=== PATIENT | female | born 1965 | race Caucasian/White ===

== ENCOUNTER 2016-09-10 07:39 | Day surgery (SDC) | payer BC ==
[~2016-09-10 07:39] MED LIST: Lidocaine 1% 6 ML ONE; Lidocaine 1%/Sod Bicarbonate in NS 8.4% 1 ML Syringe IV PRN; Propofol 200 MG/20 ML SDV ONE; Sodium Chloride 0.9% 10 ML Syringe FLUSH PRN; fentaNYL 100 MCG/2 ML SDV ONE
[2016-09-10] MEDS: Lactated Ringers 1,000 ML IV SCH ×2 (08:10→08:50)
--- NOTE | 2016-09-10 08:50 | PCM.PREANE ---
Preanesthetic Assessment - Physical Assessment NPO Status Date: 09/09/16 NPO Status Time: 21:00 O2 Sat by Pulse Oximetry: 100 Respiratory Rate: 16 Vital Signs: Last Vital Signs Temp 37.7 C 09/10/16 07:45 Pulse 86 09/10/16 07:45 Resp 16 09/10/16 07:45 BP 118/67 09/10/16 07:45 Pulse Ox 100 09/10/16 07:45 Height: 1.65 m Weight: 49.442 kg - Allergies Allergies/Adverse Reactions: Allergies Allergy/AdvReac Type Severity Reaction Status Date / Time oxybutynin Allergy Dizziness Verified 09/09/16 16:03 terbinafine Allergy Itching Verified 09/09/16 16:03 PreAnesthesia Questionnaire - HOME MEDS Home Medications: Home Meds Calcium Carbonate [Calcium] 500 mg PO DAILY 09/09/16 [History] Lansoprazole [Lansoprazole] 30 mg PO DAILY 09/09/16 [History] Multivitamin [Multivitamins] 1 tab PO DAILY 09/09/16 [History] - CURRENT (IN HOUSE) MEDS Current Meds: Current Medications Lactated Ringer's (Ringers, Lactated) 1,000 mls @ 125 mls/hr IV ASDIRECTED CHICO Stop: 09/10/16 23:59 Last Admin: 09/10/16 08:10 Dose: 125 mls/hr Lidocaine/Sodium Bicarbonate (Buffered Lidocaine 1% In Ns 8.4%) 0.25 ml IV ONETIME PRN PRN Reason: Prior to IV Start Stop: 09/10/16 23:59 Last Admin: 09/10/16 08:10 Dose: 0.25 ml Sodium Chloride (Saline Flush) 10 ml FLUSH ASDIRECTED PRN PRN Reason: Keep Vein Open Stop: 09/10/16 23:59 Discontinued Medications Fentanyl (Sublimaze) Confirm Administered Dose 100 mcg .ROUTE .STK-MED ONE Stop: 09/10/16 07:32 Lidocaine HCl (Xylocaine-Mpf 1%) Confirm Administered Dose 6 mls @ as directed .ROUTE .STK-MED ONE Stop: 09/10/16 07:32 Propofol (Diprivan 20 Ml) Confirm Administered Dose 200 mg .ROUTE .STK-MED ONE Stop: 09/10/16 07:32 Preanesthetic Assessment - ANESTHESIA/TRANSFUSION/FAMILY HX Anesthesia/Transfusion History: No Prior Transfusion(s), Prior Anesthesia Type of Anesthesia Reaction: Reports: Unknown Family History of Anesthesia Reaction: No Intubation History: Unknown Type of Transfusion Reactions: Reports: Unknown - REVIEW OF SYSTEMS Constitutional: Reports: no symptoms DOORS PREFITTER: Reports: no symptoms Respiratory: Reports: no symptoms Cardiovascular: Reports: no symptoms GI: Reports: no symptoms (GERD), nausea (hx, not at the present time ) Other: Reports: None - PHYSICAL ASSESSMENT O2 Sat by Pulse Oximetry: 100 RR: 16 Vital Signs: Last Vital Signs Temp 37.7 C 09/10/16 07:45 Pulse 86 09/10/16 07:45 Resp 16 09/10/16 07:45 BP 118/67 09/10/16 07:45 Pulse Ox 100 09/10/16 07:45 Height: 1.65 m Weight: 49.442 kg NPO Status Date: 09/09/16 NPO Status Time: 21:00 ASA Class: 2 Mental Status: Alert & Oriented x3 Airway Class: Mallampati = 1 Dentition: Reports: Normal Dentition Thyro-Mental Finger Breadths: 3 Mouth Opening Finger Breadths: 3 ROM/Head Extension: Full Respiratory Status: lungs clear to auscultation bilaterally Cardiovascular Status: regular rate & rhythm, normal S1, S2, no murmur, blood pressure WNL - ALLERGIES Allergies/Adverse Reactions: Allergies Allergy/AdvReac Type Severity Reaction Status Date / Time oxybutynin Allergy Dizziness Verified 09/09/16 16:03 terbinafine Allergy Itching Verified 09/09/16 16:03 - BLOOD Blood Available: No Product(s) Available: None - ANESTHESIA PLAN Preop Beta Amalia: No Anesthesia Type Planned: MAC - ACKNOWLEDGEMENTS Pt an Appropriate Candidate for the Planned Anesthesia: Yes Alternatives and Risks of Anesthesia Discussed w Pt/Guardian: Yes Pt/Guardian Understands and Agrees with Anesthesia Plan: Yes
--- NOTE | 2016-09-10 09:42 | PCM48HPAN ---
Post Anesthesia Note - EVALUATION WITHIN 48HRS OF ANESTHETIC Vital Signs in Normal Range: Yes Patient Participated in Evaluation: Yes Respiratory Function Stable: Yes Airway Patent: Yes Cardiovascular Function Stable: Yes Hydration Status Stable: Yes Pain Control Satisfactory: Yes Nausea and Vomiting Control Satisfactory: Yes Mental Status Recovered: Yes
--- NOTE | 2016-09-10 09:46 | PCM.OPNOTE ---
[id number] junction biopsies Findings: normal EGD Pre Op Diagnosis: GERD Post-Op Diagnosis: nornal EGD Anesthesia Technique: MAC, Moderate sedation Primary Surgeon: Cristo Carrillo Pathology: GE jucntion biopsies x3 EBL in mLs: 0 Complications: None Condition: Good Free Text/Narrative:: After adequate IV sedation and analgesia was obtained the patient was placed on her left side. Through a bite block a lubricated upper endoscope was inserted into the esophagus and advanced to the stomach without difficulty. Air was given here. The pylorus was entered into the duodenum to the second part. The second, and first portion were endoscopically normal. The antrum and body of the stomach were endoscopically normal as well with no inflammatory changes seen. In the retroflexed view there was no hiatal hernia. The fundus and cardiac , regions were normal. I pulled the scope into the distal esophagus. The GE junction was normal. Two random biopsies were taken given her history for histologic evaluation. The body of the esophagus was endoscopically normal. Traveling Sales Executive photographs were taken for the patient and for the record.
[2016-09-10 10:12] VITALS: BP 116/71
== END 2016-09-10 10:20 | disposition home or self-care (01) ==
LOC: JD.SDS 07:39
PROVIDERS: ATTEND Surgery
PROC: 0DB48ZZ Excision of Esophagogastric Junction, Via Natural or Artificial Opening Endoscopic (ICD-10-PCS; principal; 2016-09-10)
DX: K21.9 Gastro-esophageal reflux disease without esophagitis (principal); M85.80 Other specified disorders of bone density and structure, unspecified site
CPT/HCPCS: 43239; 88305; 93005; J3010; J7120; J2704

== ENCOUNTER 2017-05-27 07:41 | Day surgery (SDC) | payer BC ==
[~2017-05-27 07:41] MED LIST changes: -Lidocaine 1% 6 ML ONE; -fentaNYL 100 MCG/2 ML SDV ONE
[2017-05-27] MEDS: Lactated Ringers 1,000 ML IV SCH ×2 (07:50→10:36)
--- NOTE | 2017-05-27 08:17 | PCM.PREANE ---
Preanesthetic Assessment - Anesthesia/Transfusion/Family Hx Anesthesia History: Prior Anesthesia Reaction ("not sure if it was anesthesia but was unable to lift arms and legs" "highly sensative") Family History of Anesthesia Reaction: No Transfusion History: No Prior Transfusion(s) Type of Transfusion Reactions: Reports: Unknown - Review of Systems General: No Symptoms Pulmonary: No Symptoms Cardiovascular: No Symptoms, Other (LBBB) Gastrointestinal: No Symptoms Neurological: No Symptoms Other: Reports: None - Physical Assessment NPO Status Date: 05/26/17 NPO Status Time: 00:00 Pulse: 92 O2 Sat by Pulse Oximetry: 100 Respiratory Rate: 16 Blood Pressure: 113/64 Temperature: 36.7 C Vital Signs: Last Vital Signs Temp 36.7 C 05/27/17 07:50 Pulse 92 05/27/17 07:50 Resp 16 05/27/17 07:50 BP 113/64 05/27/17 07:50 Pulse Ox 100 05/27/17 07:50 Height: 1.65 m Weight: 49.895 kg ASA Class: 2 Mental Status: Alert & Oriented x3 Airway Class: Mallampati = 1 Dentition: Reports: Normal Dentition Thyro-Mental Finger Breadths: 3 Mouth Opening Finger Breadths: 3 ROM/Head Extension: Full Lungs: Clear to Auscultation, Normal Respiratory Effort Cardiovascular: Regular Rate, Regular Rhythm, No Murmurs - Allergies Allergies/Adverse Reactions: Allergies Allergy/AdvReac Type Severity Reaction Status Date / Time iodine Allergy Cannot Verified 05/26/17 15:34 Remember metoclopramide [From Reglan] Allergy Cannot Verified 05/26/17 15:34 Remember oxybutynin Allergy Dizziness Verified 05/26/17 15:34 terbinafine Allergy Itching Verified 05/26/17 15:34 - Blood Blood Available: No Product(s) Available: None - Anesthesia Plan Pre-Op Medication Ordered: None - Acknowledgements Anesthesia Type Planned: MAC Pt an Appropriate Candidate for the Planned Anesthesia: Yes Alternatives and Risks of Anesthesia Discussed w Pt/Guardian: Yes Pt/Guardian Understands and Agrees with Anesthesia Plan: Yes PreAnesthesia Questionnaire HEENT History: Reports: Other (See Below) Other HEENT History: sinus pain, TMJ, wears contacts Cardiovascular History: Reports: Other (See Below) Other Cardiovascular History: left bundle branch block Respiratory History: Reports: None Gastrointestinal History: Reports: Gastritis, GERD, Other (See Below) Other Gastrointestinal History: abdominal pain, cholecystitis, gastritis SPECIAL CERTIFICATE DICTATOR History: Reports: None Musculoskeletal History: Reports: Back Pain, Chronic, Osteoporosis, Other (See Below) Other Musculoskeletal History: right ankle fracture, left elbow fracture Neurological History: Reports: None Psychiatric History: Reports: None Endocrine/Metabolic History: Reports: Osteopenia Hematologic History: Reports: Anemia Immunologic History: Reports: None Oncologic (Cancer) History: Reports: Breast Dermatologic History: Reports: Other (See Below) Other Dermatologic History: nail disorder, onchomycosis - Past Surgical History Head Surgeries/Procedures: Reports: None Cardiovascular Surgical History: Reports: None Respiratory Surgical History: Reports: None GI Surgical History: Reports: Cholecystectomy Female Surgical History: Reports: Breast Biopsy Endocrine Surgical History: Reports: None Neurological Surgical History: Reports: None Musculoskeletal Surgical History: Reports: Shoulder Surgery Oncologic Surgical History: Reports: None - SUBSTANCE USE Smoking Status *Q: Never Smoker Tobacco Use Within Last Twelve Months: No Second Hand Smoke Exposure: No Days Per Week of Alcohol Use: 0 Number of Drinks Per Day: 0 Total Drinks Per Week: 0 Recreational Drug Use History: No - HOME MEDS Home Medications: Home Meds Nortriptyline [Nortriptyline] 10 mg PO 1200 05/26/17 [History] - CURRENT (IN HOUSE) MEDS Current Meds: Current Medications Lactated Ringer's (Ringers, Lactated) 1,000 mls @ 125 mls/hr IV ASDIRECTED [facility] Lidocaine/Sodium Bicarbonate (Buffered Lidocaine 1% In Ns 8.4%) 0.25 ml IV ONETIME PRN PRN Reason: Prior to IV Start Sodium Chloride (Saline Flush) 10 ml FLUSH ASDIRECTED PRN PRN Reason: Keep Vein Open Discontinued Medications Propofol (Diprivan 20 Ml) Confirm Administered Dose 200 mg .ROUTE .STK-MED ONE Stop: 05/27/17 07:15
[2017-05-27] MEDS ORDERED: Propofol 200 MG/20 ML SDV ONE (09:08)
[2017-05-27] MEDS ORDERED: Lidocaine 1% 2 ML ONE ×2 (09:16)
--- NOTE | 2017-05-27 09:36 | PCM48HPAN ---
Post Anesthesia Note - EVALUATION WITHIN 48HRS OF ANESTHETIC Vital Signs in Normal Range: Yes Patient Participated in Evaluation: Yes Respiratory Function Stable: Yes Airway Patent: Yes Cardiovascular Function Stable: Yes Hydration Status Stable: Yes Pain Control Satisfactory: Yes Nausea and Vomiting Control Satisfactory: Yes Mental Status Recovered: Yes - COMMENTS/OBSERVATIONS Free Text/Narrative:: VSS no c/o resting quietly, at bedside
--- NOTE | 2017-05-27 09:37 | PCM.OPNOTE ---
- General Post-Op/Procedure Note Date of Surgery/Procedure: 05/27/17 Operative Procedure(s): Colonoscopy with 4 biopsies of the luminal left colonic polypoid mass lesion with dye staining of the area Findings: 1. Polypoid nonobstructing mass lesion at 40 cm from the anal verge approximately 3-4 cm in diameter Pre Op Diagnosis: Anemia of unknown etiology Post-Op Diagnosis: Polypoid left-sided colonic mass lesion Anesthesia Technique: MAC, Moderate Sedation Primary Surgeon: Cristo Carrillo Pathology: Multiple biopsies of the above lesion EBL in mLs: 0 Complications: None Condition: Good Free Text/Narrative:: After adequate IV sedation and analgesia was obtained with monitoring the patient was placed on her left side. Perianal inspection and digital rectal examination were performed next and were unremarkable. A lubricated colonoscope was inserted into the rectum then advanced under direct vision with abdominal pressure to reach the cecum. The bowel preparation was excellent. The cecum, ascending colon, hepatic flexure, and transverse colons were endoscopically normal with no mass lesions or inflammatory changes seen. The proximal descending colon was normal however, at about 40 cm from the anal verge there was a polypoid eccentrically placed soft sessile velvet-like 3-4 cm diameter mass lesion which was not ulcerated exudative or bleeding. I stained the area with 10 mL of black dye. This was done in 2 sites. I then biopsied the lesion 4 in 4 quadrants for histologic evaluation. The distal descending colon, sigmoid colon, and rectum were without lesions. Photographs were taken for the patient and for the medical record. There were no complications.
[2017-05-27] MEDS ORDERED: Ondansetron 4 MG/2 ML SDV IVPUSH PRN (10:02)
[2017-05-27] MEDS ORDERED: Scopolamine 1.5 MG Transdermal Patch TOP ONE (10:49)
[2017-05-27 12:12] VITALS: BP 114/61
== END 2017-05-27 12:25 | disposition home or self-care (01) ==
LOC: JD.SDS 07:41
PROVIDERS: ATTEND Surgery
DX: D12.4 Benign neoplasm of descending colon (principal); D50.9 Iron deficiency anemia, unspecified; I44.7 Left bundle-branch block, unspecified; M85.80 Other specified disorders of bone density and structure, unspecified site; J34.89 Other specified disorders of nose and nasal sinuses; M26.629 Arthralgia of temporomandibular joint, unspecified side; M54.9 Dorsalgia, unspecified; K21.9 Gastro-esophageal reflux disease without esophagitis; M81.0 Age-related osteoporosis without current pathological fracture; Z90.49 Acquired absence of other specified parts of digestive tract; Z91.048 Other nonmedicinal substance allergy status; Z88.8 Allergy status to other drugs, medicaments and biological substances; Z98.890 Other specified postprocedural states
CPT/HCPCS: 45380; A9270; J7120; 00810; J2704

== ENCOUNTER → 2017-07-13 | Day surgery (SDC) | payer BC ==
[~2017-07-13] MED LIST changes: +EPINEPHrine 1 MG/ML SDV ONE; +Ketorolac 30 MG/ML SDV IVPUSH ONE; +Lidocaine 1% 4 ML ONE; +fentaNYL 100 MCG/2 ML SDV IVPUSH PRN; +fentaNYL 100 MCG/2 ML SDV ONE
[2017-07-13] MEDS: Lactated Ringers 1,000 ML IV SCH ×2 (07:32→09:18)
--- NOTE | 2017-07-13 07:59 | PCM.PREANE ---
Preanesthetic Assessment - Anesthesia/Transfusion/Family Hx Anesthesia History: Prior Anesthesia Reaction ("not sure if it was anesthesia but was unable to lift arms and legs" "highly sensative") Type of Anesthesia Reaction: Excessive Somnolence Other Type of Anesthesia Reaction Comment: Very hard to wake up from her previous anesthetics. Family History of Anesthesia Reaction: No Transfusion History: No Prior Transfusion(s) - Review of Systems General: No Symptoms, Other (Anemia) Pulmonary: No Symptoms Cardiovascular: No Symptoms (On occasion when first stands up), Lightheadedness , Other (LBBB) Gastrointestinal: Abdominal Pain Neurological: No Symptoms Other: Reports: None - Physical Assessment NPO Status Date: 07/12/17 NPO Status Time: 23:00 Pulse: 85 O2 Sat by Pulse Oximetry: 100 Respiratory Rate: 16 Blood Pressure: 123/63 Temperature: 36.8 C Weight: 49 kg ASA Class: 2 Mental Status: Alert & Oriented x3 Airway Class: Mallampati = 1 Dentition: Reports: [place](s) Thyro-Mental Finger Breadths: 3 Mouth Opening Finger Breadths: 3 ROM/Head Extension: Full Lungs: Clear to Auscultation, Normal Respiratory Effort Cardiovascular: Regular Rate, Regular Rhythm - Allergies Allergies/Adverse Reactions: Allergies Allergy/AdvReac Type Severity Reaction Status Date / Time iodine Allergy Cannot Verified 07/13/17 07:58 Remember metoclopramide [From Reglan] Allergy Cannot Verified 07/13/17 07:58 Remember terbinafine Allergy Itching Verified 07/13/17 07:58 oxybutynin AdvReac Dizziness Verified 07/13/17 07:58 - Acknowledgements Anesthesia Type Planned: MAC Pt an Appropriate Candidate for the Planned Anesthesia: Yes Alternatives and Risks of Anesthesia Discussed w Pt/Guardian: Yes Pt/Guardian Understands and Agrees with Anesthesia Plan: Yes Additional Comments: Anca states it took her about 4 hours to wake up from her colonoscopy. Every surgery she has it takes her so long to come around. PreAnesthesia Questionnaire HEENT History: Reports: Other (See Below) Other HEENT History: sinus pain, TMJ, wears contacts Cardiovascular History: Reports: Other (See Below) Other Cardiovascular History: left bundle branch block Respiratory History: Reports: None Gastrointestinal History: Reports: Gastritis, GERD, Other (See Below) Other Gastrointestinal History: abdominal pain, cholecystitis, gastritis Genitourinary History: Reports: None AIRPLANE PATROL PILOT History: Reports: None Musculoskeletal History: Reports: Back Pain, Chronic, Osteoporosis, Other (See Below) Other Musculoskeletal History: right ankle fracture, left elbow fracture Neurological History: Reports: None Psychiatric History: Reports: None Endocrine/Metabolic History: Reports: Osteopenia Hematologic History: Reports: Anemia Immunologic History: Reports: None Oncologic (Cancer) History: Reports: Breast Dermatologic History: Reports: Other (See Below) Other Dermatologic History: nail disorder, onchomycosis - Past Surgical History Head Surgeries/Procedures: Reports: None HEENT Surgical History: Reports: None Cardiovascular Surgical History: Reports: None Respiratory Surgical History: Reports: None GI Surgical History: Reports: Cholecystectomy, Colonoscopy Female Surgical History: Reports: Breast Biopsy Endocrine Surgical History: Reports: None Neurological Surgical History: Reports: None Musculoskeletal Surgical History: Reports: Shoulder Surgery Oncologic Surgical History: Reports: None - SUBSTANCE USE Smoking Status *Q: Never Smoker Tobacco Use Within Last Twelve Months: No Second Hand Smoke Exposure: No Days Per Week of Alcohol Use: 0 Number of Drinks Per Day: 0 Total Drinks Per Week: 0 Recreational Drug Use History: No - HOME MEDS Home Medications: Home Meds Nortriptyline 10 mg PO 1200 05/26/17 [History] - CURRENT (IN HOUSE) MEDS Current Meds: Current Medications Lactated Ringer's (Ringers, Lactated) 1,000 mls @ 125 mls/hr IV ASDIRECTED CHICO Stop: 07/13/17 23:00 Lidocaine/Sodium Bicarbonate (Buffered Lidocaine 1% In Ns 8.4%) 0.25 ml IV ONETIME PRN PRN Reason: Prior to IV Start Stop: 07/13/17 18:00 Sodium Chloride (Saline Flush) 10 ml FLUSH ASDIRECTED PRN PRN Reason: Keep Vein Open Stop: 07/13/17 18:00 Discontinued Medications Fentanyl (Sublimaze) Confirm Administered Dose 100 mcg .ROUTE .STK-MED ONE Stop: 07/13/17 06:57 Lidocaine HCl (Xylocaine-Mpf 1%) Confirm Administered Dose 4 mls @ as directed .ROUTE .STK-MED ONE Stop: 07/13/17 06:57 Propofol (Diprivan 20 Ml) Confirm Administered Dose 400 mg .ROUTE .STK-MED ONE Stop: 07/13/17 06:56
--- NOTE | 2017-07-13 12:56 | PCM.OPNOTE ---
- General Post-Op/Procedure Note Date of Surgery/Procedure: 07/13/17 Operative Procedure(s): Endoscopic mucosal lift procedure with endoscopic mucosal piecemeal snare resection of a tubulovillous adenoma located at 40 cm from the anal verge Findings: Large tubulovillous adenoma, which was not firm, fixed, or ulcerated. The rest of the colon to the cecum was unremarkable for synchronous lesions. Pre Op Diagnosis: Large tubulovillous adenoma at 40 cm Post-Op Diagnosis: Same Anesthesia Technique: MAC, Moderate Sedation Primary Surgeon: Cristo Carrillo Pathology: Portions of polyp EBL in mLs: 2 Complications: None Condition: Good Free Text/Narrative:: After adequate IV sedation and analgesia was obtained with monitoring the patient was placed on her left side. Perianal inspection revealed a small anal tags. Digital rectal examination was unremarkable. A lubricated colonoscope was inserted into the rectum then advanced under direct vision to the area of the polyp which was about 40 cm from the anal verge. The scope was advanced to the cecum. The cecum right colon and transverse colons were endoscopically normal with no additional polyps or mass lesions seen. I injected 15 mL of dye for staining and lifting up the 3-4 cm polyp away from the underlying circular muscularture. A hot blended snare set at 20-20 was used to piecemeal resect the polyp. The underlying circular muscle suture was visualized across 75% of the polyp base. The other 25% had some submucosa which I simply fulgurated. The pieces were captured within the Lukens trap. At the end of this I cauterized the edges for hemostasis and then injected epinephrine submucosally and topically. Photographs were taken for the patient and for the medical record. Air was removed as I finished the procedure which she tolerated fairly well although she did have some bilious emesis.
--- NOTE | 2017-07-13 13:05 | PCM.SURGPN ---
- General Info Date of Service: 07/13/17 Functional Status: Reports: Other (Patient has not passed the air from the endoscopic procedure. She's having moderate to severe crampy abdominal pain. ) - Patient Data Vitals - Most Recent: Last Vital Signs Temp 36.6 C 07/13/17 12:00 Pulse 70 07/13/17 12:30 Resp 18 07/13/17 12:30 BP 120/74 07/13/17 12:30 Pulse Ox 100 07/13/17 12:30 Weight - Most Recent: 49 kg Med Orders - Current: Current Medications Fentanyl (Sublimaze) 50 mcg IVPUSH Q5M PRN PRN Reason: Pain Stop: 07/13/17 18:00 Last Admin: 07/13/17 11:20 Dose: 50 mcg Lactated Ringer's (Ringers, Lactated) 1,000 mls @ 125 mls/hr IV ASDIRECTED CHICO Stop: 07/13/17 23:00 Last Admin: 07/13/17 09:18 Dose: 125 mls/hr Lidocaine/Sodium Bicarbonate (Buffered Lidocaine 1% In Ns 8.4%) 0.25 ml IV ONETIME PRN PRN Reason: Prior to IV Start Stop: 07/13/17 18:00 Last Admin: 07/13/17 07:31 Dose: 0.25 ml Sodium Chloride (Saline Flush) 10 ml FLUSH ASDIRECTED PRN PRN Reason: Keep Vein Open Stop: 07/13/17 18:00 Discontinued Medications Epinephrine HCl (Adrenalin) Confirm Administered Dose 1 mg .ROUTE .STK-MED ONE Stop: 07/13/17 09:22 Epinephrine HCl (Adrenalin) Confirm Administered Dose 1 mg .ROUTE .STK-MED ONE Stop: 07/13/17 09:23 Fentanyl (Sublimaze) Confirm Administered Dose 100 mcg .ROUTE .STK-MED ONE Stop: 07/13/17 06:57 Glycopyrrolate () Confirm Administered Dose 1 mg .ROUTE .STK-MED ONE Stop: 07/13/17 10:40 Lidocaine HCl (Xylocaine-Mpf 1%) Confirm Administered Dose 4 mls @ as directed .ROUTE .STK-MED ONE Stop: 07/13/17 06:57 Ketorolac Tromethamine (Toradol) 30 mg IVPUSH ONETIME ONE Stop: 07/13/17 12:14 Last Admin: 07/13/17 12:28 Dose: 30 mg Propofol (Diprivan 20 Ml) Confirm Administered Dose 400 mg .ROUTE .STK-MED ONE Stop: 07/13/17 06:56 - Exam GI/Abdominal Exam: Distended (Mild to moderate but nonfocal and no rigidity) - Problem List & Annotations (1) Tubulovillous adenoma of large intestine SNOMED Code(s): 811095341 Code(s): D12.6 - BENIGN NEOPLASM OF COLON, UNSPECIFIED Status: Resolved Priority: Medium Current Visit: Yes - Problem List Review Problem List Initiated/Reviewed/Updated: Yes - My Orders Last 24 Hours: Active Orders 24 hr Category Date Time Status Communication Order [RC] ROUTINE Care 07/13/17 11:11 Active Notify Provider [RC] ASDIRECTED Care 07/13/17 11:11 Active Oxygen Therapy [RC] ASDIRECTED Care 07/13/17 11:11 Active Peripheral IV Care [RC] . DIRECTED Care 07/13/17 00:01 Active Pulse Oximetry [RC] ASDIRECTED Care 07/13/17 11:11 Active Ready for Discharge [RC] PER UNIT ROUTINE Care 07/13/17 10:53 Active Verify Patient Consent Obtain [RC] ASDIRECTED Care 07/13/17 00:01 Active Vital Signs [RC] Q15M Care 07/13/17 11:11 Active Lactated Ringers [Ringers, Lactated] 1,000 ml Med 07/13/17 00:01 Active IV ASDIRECTED Lidocaine 1%/Sod Bicarbonate [Buffered Lidocaine 1% in Med 07/13/17 00:01 Active NS 8.4%] 0.25 ml IV ONETIME PRN Sodium Chloride 0.9% [Saline Flush] Med 07/13/17 00:01 Active 10 ml FLUSH ASDIRECTED PRN fentaNYL [Sublimaze] Med 07/13/17 11:10 Active 50 mcg IVPUSH Q5M PRN Medication Administration Instruction [OM.PC] Routine Oth 07/13/17 00:01 Ordered Peripheral IV Insertion Adult [OM.PC] Routine Oth 07/13/17 00:01 Ordered Medication Orders Fentanyl (Sublimaze) 50 mcg IVPUSH Q5M PRN PRN Reason: Pain Stop: 07/13/17 18:00 Last Admin: 07/13/17 11:20 Dose: 50 mcg Lactated Ringer's (Ringers, Lactated) 1,000 mls @ 125 mls/hr IV ASDIRECTED CHICO Stop: 07/13/17 23:00 Last Admin: 07/13/17 09:18 Dose: 125 mls/hr Infusion: 07/13/17 09:18 Dose: 125 mls/hr Admin: 07/13/17 07:32 Dose: 125 mls/hr Lidocaine/Sodium Bicarbonate (Buffered Lidocaine 1% In Ns 8.4%) 0.25 ml IV ONETIME PRN PRN Reason: Prior to IV Start Stop: 07/13/17 18:00 Last Admin: 07/13/17 07:31 Dose: 0.25 ml Sodium Chloride (Saline Flush) 10 ml FLUSH ASDIRECTED PRN PRN Reason: Keep Vein Open Stop: 07/13/17 18:00 - Assessment Assessment (Free Text/Narrative):: Post procedure abdominal pain. I believe is related to her inability to pass gas. I'm not concerned about the post-polypectomy syndrome as yet. - Plan Plan (Free Text/Narrative):: I will place her in extended stay status for observation and pain control.
--- NOTE | 2017-07-13 16:03 | PCM48HPAN ---
Post Anesthesia Note - EVALUATION WITHIN 48HRS OF ANESTHETIC Vital Signs in Normal Range: Yes Patient Participated in Evaluation: Yes Respiratory Function Stable: Yes Airway Patent: Yes Cardiovascular Function Stable: Yes Hydration Status Stable: Yes Pain Control Satisfactory: No Nausea and Vomiting Control Satisfactory: Yes Mental Status Recovered: Yes - COMMENTS/OBSERVATIONS Free Text/Narrative:: Patient is unable to pass gas. Having a lot of abdominal cramping. Dr. Carrillo notified. Will keep her in extended recovery and monitor. Patient states pain is improving with time.
[2017-07-13] MEDS: HYDROmorphone 0.5 MG/0.5 ML Syringe IVPUSH PRN ×2 (16:46→23:31)
[2017-07-14 05:46] VITALS: BP 106/54
== END | disposition home or self-care (01) ==
LOC: JD.SDS 07:15
PROVIDERS: ATTEND Surgery
DX: D12.6 Benign neoplasm of colon, unspecified (principal); K64.4 Residual hemorrhoidal skin tags; D50.9 Iron deficiency anemia, unspecified; K21.9 Gastro-esophageal reflux disease without esophagitis; M81.0 Age-related osteoporosis without current pathological fracture; I44.7 Left bundle-branch block, unspecified; M85.80 Other specified disorders of bone density and structure, unspecified site; Z91.09 Other allergy status, other than to drugs and biological substances; Z88.8 Allergy status to other drugs, medicaments and biological substances; Z98.890 Other specified postprocedural states; Z90.49 Acquired absence of other specified parts of digestive tract
CPT/HCPCS: 45385; J0171; J1170; J1885; J3010; J7120; J2704